=== PATIENT | male | born 1940 | race Hispanic/Latino ===

== ENCOUNTER 2021-11-03 21:22 | Inpatient (IN) | payer MEDICARE, OTHER ==
[~2021-11-03] VITALS: Ht 182.9 cm; Wt 98.2 kg
[2021-11-03] MEDS ORDERED: 0.9% NACL 500ML IV.SOLN 500 ML IV ONE (22:30)
[2021-11-03] MEDS ORDERED: LORAZEPAM 2 MG/ML 1 ML VIAL IVP ONE (22:30)
[2021-11-03 22:32] LABS: BASOPHILS % (AUTO) 0.1 % (0.0-5.0); EOSINOPHILS % (AUTO) 0.1 % (0.0-8.0); HEMATOCRIT 30.7 % (42-54); LYMPHOCYTES % (AUTO) 2.9 % (21.0-51.0); MEAN CORPUSCULAR HEMOGLOBIN 31.4 pg (27.0-33.0); MEAN CORPUSCULAR HGB CONC 31.3 g/dL (32.0-36.0); MEAN CORPUSCULAR VOLUME 100.3 fL (79-99); MONOCYTES % (AUTO) 4.1 % (3.0-13.0); NEUTROPHILS % (AUTO) 92.2 % (40.0-77.0); NUCLEATED RED BLOOD CELLS 0.2 % (0.0-0.19); PLATELET COUNT (AUTO) 176 K/uL (130-400); RED BLOOD CELL COUNT(AUTO) 3.06 MIL/uL (4.50-6.20); RED CELL DISTRIBUTION WIDTH 19.2 % (11.0-15.5); WHITE BLOOD COUNT (AUTO) 14.5 K/uL (4.8-10.8)
[2021-11-03 22:39] LABS: INR 1.22 (0.85-1.15); PROTHROMBIN TIME 13.1 SEC (9.6-11.6)
[2021-11-03 22:40] LABS: PARTIAL THROMBOPLASTIN TIME 27.1 SEC (26.3-35.5)
[2021-11-03 22:43] LABS: ALBUMIN 2.8 g/dL (3.5-5.0); BILIRUBIN,TOTAL 1.2 mg/dL (0.2-1.0); CREATININE 0.9 mg/dL (0.5-1.5); TOTAL PROTEIN, SERUM 5.5 g/dL (6.0-8.3)
[2021-11-03 22:47] LABS: POTASSIUM 2.2 mmol/L (3.5-5.1)
[2021-11-03] MEDS ORDERED: POTASSIUM CHLORIDE 20 MEQ/100 ML BAG IV SCH (23:00)
[2021-11-03] MEDS ORDERED: ASPIRIN 300 MG SUPPOSITORY PR ONE (23:00)
[2021-11-03] MEDS ORDERED: IOHEXOL 350 MG/ML 100ML INFUS..BTL IV ONE (23:18)
[2021-11-04] MEDS ORDERED: ALPRAZOLAM 0.25 MG TABLET PO PRN (02:00)
[2021-11-04] MEDS ORDERED: LORAZEPAM 2 MG/ML 1 ML VIAL ONE (04:15)
[2021-11-04] MEDS ORDERED: LORAZEPAM 2 MG/ML 1 ML VIAL IVP PRN (04:30)
[2021-11-04] MEDS ORDERED: LORAZEPAM 2 MG/ML 1 ML VIAL IM PRN (04:30)
[2021-11-04] MEDS ORDERED: DOCU100T PO (04:31)
[2021-11-04] MEDS ORDERED: PANT40TA54 PO (04:31)
[2021-11-04] MEDS ORDERED: BUDE180H IH (04:31)
[2021-11-04] MEDS ORDERED: ALBU8.5H8 IH (04:31)
[2021-11-04] MEDS ORDERED: LACT10SO9 PO (04:31)
[2021-11-04] MEDS ORDERED: BALS60OI TP (04:31)
[2021-11-04] MEDS ORDERED: [UNRECOGNIZED DRUG - CODE] IV (04:31)
[2021-11-04] MEDS ORDERED: ACET-2247 PO (04:31)
[2021-11-04] MEDS ORDERED: HYDR10 PO (04:31)
[2021-11-04] MEDS ORDERED: TEMA15CA PO (04:31)
[2021-11-04] MEDS ORDERED: MAAL30 PO (04:31)
[2021-11-04] MEDS ORDERED: NITR0.4T50 SL (04:31)
[2021-11-04] MEDS ORDERED: ALPR1TAB2 PO (04:31)
[2021-11-04] MEDS ORDERED: SENN8.6T32 PO (04:31)
[2021-11-04] MEDS ORDERED: MELA10TA PO (04:31)
[2021-11-04] MEDS ORDERED: FURO40TA5 PO (04:31)
[2021-11-04] MEDS ORDERED: GUAI100S13 PO (04:31)
[2021-11-04] MEDS ORDERED: DEXA6TAB PO (04:31)
[2021-11-04] MEDS ORDERED: ATOR40TA71 PO (04:31)
[2021-11-04] MEDS ORDERED: ONDANSETRON 4MG INJ IV PRN (05:00)
[2021-11-04] MEDS ORDERED: DOXYCYCLINE 100MG+NS 250ML IV SCH (05:00)
[2021-11-04] MEDS: DEXAMETHASONE SOD PHOSPHATE 4 MG/ML 1ML VIAL IVP SCH (05:00)
[2021-11-04] MEDS ORDERED: AZITHROMYCIN 500MG+NS 250ML 250 ML IV SCH ×2 (05:00→09:00)
[2021-11-04] MEDS: CEFTRIAXONE 1G VIAL IVP SCH ×2 (05:00→17:00)
[2021-11-04] MEDS ORDERED: ACETAMINOPHEN 325 MG TAB PO PRN (05:00)
[2021-11-04] MEDS ORDERED: LIDOCAINE HCL-MPF 1% 2ML VIAL IV PRN (05:30)
[2021-11-04 06:39] LABS: HEMOGLOBIN A1C 5.1 % (4.0-6.0)
[2021-11-04] MEDS: DOXYCYCLINE 100MG+NS 250ML 250 ML IV SCH ×2 (08:55→20:53)
[2021-11-04] MEDS: POTASSIUM CHLORIDE 20MEQ/100ML 100 ML IV PRN ×5 (08:55→23:47)
[2021-11-04] MEDS: FAMOTIDINE 20MG TAB PO SCH ×2 (08:56→20:42)
[2021-11-04] MEDS ORDERED: LABETALOL 20MG SYG IV PRN (09:00)
[2021-11-04] MEDS ORDERED: ENOXAPARIN SODIUM 40 MG/0.4 ML SYRINGE SQ SCH (09:00)
[2021-11-04] MEDS: IPRATROPIUM 0.5 MG/2.5 ML INH IH SCH ×4 (10:10→23:06)
[2021-11-04] MEDS: 1/2NS+20MEQ KCL/1000ML 1,000 ML IV SCH (13:00)
[2021-11-04 14:17] LABS: CREATININE 1.1 mg/dL (0.5-1.5); MAGNESIUM 2.1 mg/dL (1.80-2.40)
[2021-11-04 14:27] LABS: POTASSIUM 2.4 mmol/L (3.5-5.1)
[2021-11-04] MEDS: METRONIDAZOLE 500MG/100ML BAG 100 ML IVPB SCH ×2 (14:54→21:34)
[2021-11-04 20:00] VITALS: BP 112/76
[2021-11-04] MEDS ORDERED: FUROSEMIDE 20MG VIAL IV SCH (22:30)
[2021-11-04 23:00] VITALS: BP 101/42
[2021-11-05 01:00] VITALS: BP 135/65
[2021-11-05] MEDS: 1/2NS+20MEQ KCL/1000ML 1,000 ML IV SCH ×3 (02:00→21:16)
[2021-11-05] MEDS: IPRATROPIUM 0.5 MG/2.5 ML INH IH SCH ×6 (02:35→21:45)
[2021-11-05 04:00] VITALS: BP 115/57
[2021-11-05] MEDS: CEFTRIAXONE 1G VIAL IVP SCH (05:00)
[2021-11-05 05:36] LABS: BASOPHILS % (AUTO) 0.1 % (0.0-5.0); EOSINOPHILS % (AUTO) 0.6 % (0.0-8.0); HEMATOCRIT 25.9 % (42-54); LYMPHOCYTES % (AUTO) 3.9 % (21.0-51.0); MEAN CORPUSCULAR HEMOGLOBIN 31.7 pg (27.0-33.0); MEAN CORPUSCULAR HGB CONC 30.9 g/dL (32.0-36.0); MEAN CORPUSCULAR VOLUME 102.8 fL (79-99); MONOCYTES % (AUTO) 4.8 % (3.0-13.0); NEUTROPHILS % (AUTO) 90.2 % (40.0-77.0); PLATELET COUNT (AUTO) 123 K/uL (130-400); RED BLOOD CELL COUNT(AUTO) 2.52 MIL/uL (4.50-6.20); RED CELL DISTRIBUTION WIDTH 19.5 % (11.0-15.5); WHITE BLOOD COUNT (AUTO) 13.9 K/uL (4.8-10.8)
[2021-11-05] MEDS: DEXAMETHASONE SOD PHOSPHATE 4 MG/ML 1ML VIAL IVP SCH (05:42)
[2021-11-05 05:56] LABS: % IRON SATURATION 33.3 % (30-44)
[2021-11-05] MEDS: METRONIDAZOLE 500MG/100ML BAG 100 ML IVPB SCH (06:00)
[2021-11-05 06:03] LABS: ALBUMIN 2.3 g/dL (3.5-5.0); BILIRUBIN,TOTAL 0.7 mg/dL (0.2-1.0); CREATININE 0.8 mg/dL (0.5-1.5); CRP QUANTITATIVE 17.5 mg/L (0.00-9.0); TOTAL PROTEIN, SERUM 4.6 g/dL (6.0-8.3)
[2021-11-05 06:19] LABS: POTASSIUM 2.7 mmol/L (3.5-5.1)
[2021-11-05] MEDS: POTASSIUM CHLORIDE 20MEQ/100ML 100 ML IV PRN (06:51)
[2021-11-05 08:50] VITALS: BP 117/65
[2021-11-05] MEDS ORDERED: CLOPIDOGREL 75MG TAB PO SCH (09:00)
[2021-11-05] MEDS ORDERED: ASPIRIN 81MG CHEW TAB PO SCH (09:00)
[2021-11-05] MEDS ORDERED: DOXYCYCLINE 100MG+NS 250ML 250 ML IV SCH (09:00)
[2021-11-05] MEDS ORDERED: PANTOPRAZOLE 40 MG TAB DR PO SCH (09:00)
[2021-11-05] MEDS: FAMOTIDINE 20MG TAB PO SCH ×2 (10:40→21:17)
[2021-11-05] MEDS ORDERED: KCL 20 MEQ ERTAB PO SCH (11:30)
[2021-11-05] MEDS ORDERED: PHARMACY COMMUNICATION MISC SCH (11:30)
[2021-11-05 12:00] VITALS: BP 132/58
[2021-11-05] MEDS ORDERED: COMPOUND PO MISCELLANEOUS 1 EACH MISC MISC PRN (12:00)
[2021-11-05] MEDS ORDERED: COMPOUND IV MISC 1 EACH IVSOLN MISC PRN (13:30)
[2021-11-05] MEDS: VANCOMYCIN 250MG/5ML ORAL SOLUTION 40ML PO SCH ×6 (15:00→21:16)
[2021-11-05 17:45] VITALS: BP 133/71
[2021-11-05] MEDS ORDERED: KCL 20 MEQ ERTAB PO PRN (19:30)
[2021-11-05 20:00] VITALS: BP 111/57
[2021-11-05] MEDS: POTASSIUM CHLORIDE 10% ELIXIR 20 MEQ/15 ML UDCUP PO PRN ×2 (21:15→23:08)
[2021-11-06] VITALS (7 sets, daily range): BP systolic 112–134; BP diastolic 54–71
[2021-11-06] MEDS: IPRATROPIUM 0.5 MG/2.5 ML INH IH SCH ×4 (02:17→20:20)
[2021-11-06 04:15] LABS: EOSINOPHILS % (AUTO) 0.9 % (0.0-8.0); HEMATOCRIT 24.7 % (42-54); LYMPHOCYTES % (AUTO) 13.3 % (21.0-51.0); MEAN CORPUSCULAR HEMOGLOBIN 31.3 pg (27.0-33.0); MEAN CORPUSCULAR HGB CONC 30.8 g/dL (32.0-36.0); MEAN CORPUSCULAR VOLUME 101.6 fL (79-99); MONOCYTES % (AUTO) 2.5 % (3.0-13.0); NEUTROPHILS % (AUTO) 82.8 % (40.0-77.0); PLATELET COUNT (AUTO) 13 K/uL (130-400); RED BLOOD CELL COUNT(AUTO) 2.43 MIL/uL (4.50-6.20); RED CELL DISTRIBUTION WIDTH 19.3 % (11.0-15.5); WHITE BLOOD COUNT (AUTO) 4.4 K/uL (4.8-10.8)
[2021-11-06 04:36] LABS: ALBUMIN 2.2 g/dL (3.5-5.0); BILIRUBIN,TOTAL 0.8 mg/dL (0.2-1.0); CREATININE 0.6 mg/dL (0.5-1.5); CRP QUANTITATIVE 13.3 mg/L (0.00-9.0); MAGNESIUM 2.1 mg/dL (1.80-2.40); POTASSIUM 3.7 mmol/L (3.5-5.1); TOTAL PROTEIN, SERUM 4.3 g/dL (6.0-8.3)
[2021-11-06] MEDS: 1/2NS+20MEQ KCL/1000ML 1,000 ML IV SCH ×2 (05:21→16:49)
[2021-11-06] MEDS: POTASSIUM CHLORIDE 10% ELIXIR 20 MEQ/15 ML UDCUP PO PRN ×2 (05:25→06:44)
[2021-11-06] MEDS: VANCOMYCIN 1G 2 GM, 0.9%NACL 20 ML VIAL 80 ML PO SCH ×8 (09:00→20:37)
[2021-11-06] MEDS: IRON SUCROSE COMPLEX 100 MG in 0.9%NACL 50ML 50 ML IV SCH (11:18)
[2021-11-06 11:53] LABS: EOSINOPHILS % (AUTO) 1.8 % (0.0-8.0); HEMATOCRIT 27.1 % (42-54); MEAN CORPUSCULAR HEMOGLOBIN 31.7 pg (27.0-33.0); MEAN CORPUSCULAR HGB CONC 30.6 g/dL (32.0-36.0); MEAN CORPUSCULAR VOLUME 103.4 fL (79-99); NEUTROPHILS % (AUTO) 85.8 % (40.0-77.0); PLATELET COUNT (AUTO) 107 K/uL (130-400); RED BLOOD CELL COUNT(AUTO) 2.62 MIL/uL (4.50-6.20); RED CELL DISTRIBUTION WIDTH 19.8 % (11.0-15.5); WHITE BLOOD COUNT (AUTO) 9.4 K/uL (4.8-10.8)
[2021-11-06] MEDS: FINASTERIDE 5 MG TABLET PO SCH (12:30)
[2021-11-06] MEDS: TAMSULOSIN HCL 0.4 MG CAP.ER.24H PO SCH (12:30)
[2021-11-06] MEDS: SIMETHICONE 40 MG/0.6 ML ML PO SCH ×3 (12:30→20:35)
[2021-11-06] MEDS: ACETAMINOPHEN 325 MG TAB PO PRN (16:51)
[2021-11-06] MEDS: BALSAM PERU/CASTOR OIL 60 GM TUBE TP SCH ×2 (18:24→20:36)
[2021-11-06] MEDS ORDERED: TRAZODONE HCL 50 MG TAB PO PRN (20:00)
[2021-11-06] MEDS: PANTOPRAZOLE 40 MG TAB DR PO SCH (20:37)
[2021-11-07] MEDS: IPRATROPIUM 0.5 MG/2.5 ML INH IH SCH ×7 (00:08→21:43)
[2021-11-07] MEDS: 1/2NS+20MEQ KCL/1000ML 1,000 ML IV SCH ×3 (01:42→20:33)
[2021-11-07] MEDS ORDERED: TRAZODONE HCL 50 MG TAB PO ONE (03:00)
[2021-11-07 04:41] VITALS: BP 117/67
[2021-11-07 07:01] LABS: EOSINOPHILS % (AUTO) 3.3 % (0.0-8.0); HEMATOCRIT 25.9 % (42-54); LYMPHOCYTES % (AUTO) 6.8 % (21.0-51.0); MEAN CORPUSCULAR HEMOGLOBIN 31.1 pg (27.0-33.0); MEAN CORPUSCULAR HGB CONC 30.1 g/dL (32.0-36.0); MEAN CORPUSCULAR VOLUME 103.2 fL (79-99); NEUTROPHILS % (AUTO) 84.3 % (40.0-77.0); PLATELET COUNT (AUTO) 88 K/uL (130-400); RED BLOOD CELL COUNT(AUTO) 2.51 MIL/uL (4.50-6.20); RED CELL DISTRIBUTION WIDTH 19.3 % (11.0-15.5); WHITE BLOOD COUNT (AUTO) 6.6 K/uL (4.8-10.8)
[2021-11-07 07:05] VITALS: BP 122/65
[2021-11-07 07:28] LABS: ALBUMIN 2.2 g/dL (3.5-5.0); BILIRUBIN,TOTAL 0.8 mg/dL (0.2-1.0); CREATININE 0.5 mg/dL (0.5-1.5); CRP QUANTITATIVE 10.7 mg/L (0.00-9.0); POTASSIUM 3.9 mmol/L (3.5-5.1); TOTAL PROTEIN, SERUM 4.3 g/dL (6.0-8.3)
[2021-11-07] MEDS: SIMETHICONE 40 MG/0.6 ML ML PO SCH ×4 (10:32→20:40)
[2021-11-07] MEDS: VANCOMYCIN 1G 2 GM, 0.9%NACL 20 ML VIAL 80 ML PO SCH ×8 (10:32→20:40)
[2021-11-07] MEDS: PANTOPRAZOLE 40 MG TAB DR PO SCH ×2 (10:33→20:33)
[2021-11-07] MEDS: BALSAM PERU/CASTOR OIL 60 GM TUBE TP SCH ×2 (10:33→20:58)
[2021-11-07 11:00] VITALS: BP 112/67
[2021-11-07] MEDS: FINASTERIDE 5 MG TABLET PO SCH (12:32)
[2021-11-07] MEDS: TAMSULOSIN HCL 0.4 MG CAP.ER.24H PO SCH (12:32)
[2021-11-07] MEDS: IRON SUCROSE COMPLEX 100 MG in 0.9%NACL 50ML 50 ML IV SCH (12:33)
[2021-11-07 15:00] VITALS: BP 118/55
[2021-11-07 20:00] VITALS: BP_SYST 113; BP_SYST 94; BP_DIAS 56; BP_DIAS 60
[2021-11-07] MEDS ORDERED: TEMAZEPAM 7.5 MG CAPSULE PO PRN (20:00)
[2021-11-07] MEDS: ACETAMINOPHEN 325 MG TAB PO PRN (20:58)
[2021-11-08] VITALS (7 sets, daily range): BP systolic 102–133; BP diastolic 54–71
[2021-11-08] MEDS: IPRATROPIUM 0.5 MG/2.5 ML INH IH SCH ×6 (01:20→23:03)
[2021-11-08] MEDS: 1/2NS+20MEQ KCL/1000ML 1,000 ML IV SCH ×2 (06:18→16:57)
[2021-11-08] MEDS: PANTOPRAZOLE 40 MG TAB DR PO SCH ×2 (08:29→21:07)
[2021-11-08] MEDS: VANCOMYCIN 1G 2 GM, 0.9%NACL 20 ML VIAL 80 ML PO SCH ×8 (08:37→21:00)
[2021-11-08] MEDS: SIMETHICONE 40 MG/0.6 ML ML PO SCH ×4 (08:37→21:00)
[2021-11-08 08:41] LABS: BASOPHILS % (AUTO) 0.2 % (0.0-5.0); EOSINOPHILS % (AUTO) 4.4 % (0.0-8.0); HEMATOCRIT 24.8 % (42-54); LYMPHOCYTES % (AUTO) 6.8 % (21.0-51.0); MEAN CORPUSCULAR HEMOGLOBIN 31.6 pg (27.0-33.0); MEAN CORPUSCULAR HGB CONC 30.2 g/dL (32.0-36.0); MEAN CORPUSCULAR VOLUME 104.6 fL (79-99); MONOCYTES % (AUTO) 5.6 % (3.0-13.0); NEUTROPHILS % (AUTO) 82.7 % (40.0-77.0); PLATELET COUNT (AUTO) 84 K/uL (130-400); RED BLOOD CELL COUNT(AUTO) 2.37 MIL/uL (4.50-6.20); RED CELL DISTRIBUTION WIDTH 19.3 % (11.0-15.5); WHITE BLOOD COUNT (AUTO) 6.6 K/uL (4.8-10.8)
[2021-11-08] MEDS: BALSAM PERU/CASTOR OIL 60 GM TUBE TP SCH ×2 (08:50→21:07)
[2021-11-08] MEDS ORDERED: PHARMACY COMMUNICATION MISC ONE (09:00)
[2021-11-08] MEDS: IRON SUCROSE COMPLEX 100 MG in 0.9%NACL 50ML 50 ML IV SCH (09:26)
[2021-11-08 10:13] LABS: CREATININE 0.5 mg/dL (0.5-1.5); POTASSIUM 3.6 mmol/L (3.5-5.1)
[2021-11-08] MEDS: POTASSIUM CHLORIDE 20MEQ/100ML 100 ML IV PRN (10:26)
[2021-11-08] MEDS: TAMSULOSIN HCL 0.4 MG CAP.ER.24H PO SCH (12:57)
[2021-11-08] MEDS: FINASTERIDE 5 MG TABLET PO SCH (12:57)
[2021-11-08] MEDS ORDERED: PHARMACY COMMUNICATION MISC SCH (15:00)
[2021-11-08] MEDS ORDERED: ALPRAZOLAM 0.5 MG TABLET PO PRN (21:40)
[2021-11-08] MEDS ORDERED: ALPRAZOLAM 0.25 MG TABLET ONE (21:42)
[2021-11-09] MEDS: IPRATROPIUM 0.5 MG/2.5 ML INH IH SCH ×6 (02:18→22:28)
[2021-11-09 03:53] VITALS: BP 124/70
[2021-11-09 05:23] LABS: HEMATOCRIT 25.4 % (42-54); MEAN CORPUSCULAR HEMOGLOBIN 32.2 pg (27.0-33.0); MEAN CORPUSCULAR HGB CONC 30.7 g/dL (32.0-36.0); PLATELET COUNT (AUTO) 62 K/uL (130-400); RED BLOOD CELL COUNT(AUTO) 2.42 MIL/uL (4.50-6.20); RED CELL DISTRIBUTION WIDTH 19.6 % (11.0-15.5); WHITE BLOOD COUNT (AUTO) 6.2 K/uL (4.8-10.8)
[2021-11-09] MEDS: 1/2NS+20MEQ KCL/1000ML 1,000 ML IV SCH (05:28)
[2021-11-09 05:31] LABS: CREATININE 0.4 mg/dL (0.5-1.5); POTASSIUM 3.6 mmol/L (3.5-5.1)
[2021-11-09 05:35] LABS: BAND NEUTROPHILS % (MANUAL) 3 % (0-2); LYMPHOCYTES % (MANUAL) 10 % (22-44); MONOCYTES % (MANUAL) 27 % (2-9); REACTIVE LYMPHOCYTES 1 % (0-0); SEGMENTED NEUTROPHILS % 59 % (40-70)
[2021-11-09 05:36] LABS: MAN.DIFF COMMENT-IMPRESSION MANUAL DIFFERENTIAL; PLATELET MORPHOLOGY COMMENT DECREASED
[2021-11-09 07:20] VITALS: BP 130/72
[2021-11-09] MEDS: TAMSULOSIN HCL 0.4 MG CAP.ER.24H PO SCH (08:45)
[2021-11-09] MEDS: SIMETHICONE 40 MG/0.6 ML ML PO SCH ×3 (08:45→20:51)
[2021-11-09] MEDS: VANCOMYCIN 1G 2 GM, 0.9%NACL 20 ML VIAL 80 ML PO SCH ×6 (08:45→20:49)
[2021-11-09] MEDS: PANTOPRAZOLE 40 MG TAB DR PO SCH ×2 (08:45→20:46)
[2021-11-09] MEDS: BALSAM PERU/CASTOR OIL 60 GM TUBE TP SCH ×2 (08:45→20:51)
[2021-11-09] MEDS: IRON SUCROSE COMPLEX 100 MG in 0.9%NACL 50ML 50 ML IV SCH (08:45)
[2021-11-09] MEDS: FINASTERIDE 5 MG TABLET PO SCH (08:45)
[2021-11-09] MEDS: POTASSIUM CHLORIDE 20MEQ/100ML 100 ML IV PRN (10:27)
[2021-11-09 11:25] VITALS: BP 113/69
[2021-11-09 15:20] VITALS: BP 116/73
[2021-11-09 20:00] VITALS: BP 111/61
[2021-11-09] MEDS: METRONIDAZOLE 500MG/100ML BAG 100 ML IVPB SCH (22:29)
[2021-11-09] MEDS: ALPRAZOLAM 1 MG TAB PO PRN (22:29)
[2021-11-10 00:23] VITALS: BP 109/66
[2021-11-10] MEDS: IPRATROPIUM 0.5 MG/2.5 ML INH IH SCH ×6 (02:56→22:52)
[2021-11-10 03:51] LABS: ABG BASE EXCESS 0.3 mmol/L (-2.0-3.0); ABG HCO3 26.1 mmol/L (21.0-28.0); ABG OXYGEN SATURATION 92.5 % (95.0-99.0); ABG PCO2 47 mmHg (35-48)
[2021-11-10 04:00] VITALS: BP 123/73
[2021-11-10 05:07] LABS: HEMATOCRIT 27.7 % (42-54); MEAN CORPUSCULAR HEMOGLOBIN 32.3 pg (27.0-33.0); MEAN CORPUSCULAR HGB CONC 30.3 g/dL (32.0-36.0); MEAN CORPUSCULAR VOLUME 106.5 fL (79-99); PLATELET COUNT (AUTO) 100 K/uL (130-400); RED CELL DISTRIBUTION WIDTH 20.1 % (11.0-15.5); WHITE BLOOD COUNT (AUTO) 5.4 K/uL (4.8-10.8)
[2021-11-10 05:19] LABS: BAND NEUTROPHILS % (MANUAL) 8 % (0-2); INR 1.18 (0.85-1.15); LYMPHOCYTES % (MANUAL) 20 % (22-44); MAN.DIFF COMMENT-IMPRESSION MANUAL DIFFERENTIAL; MONOCYTES % (MANUAL) 4 % (2-9); PLATELET MORPHOLOGY COMMENT ADEQUATE; PROTHROMBIN TIME 12.7 SEC (9.6-11.6); SEGMENTED NEUTROPHILS % 68 % (40-70)
[2021-11-10 05:20] LABS: ALBUMIN 2.2 g/dL (3.5-5.0); BILIRUBIN,DIRECT 0.2 mg/dL (0.0-0.3); BILIRUBIN,TOTAL 0.6 mg/dL (0.2-1.0); CREATININE 0.4 mg/dL (0.5-1.5); CRP QUANTITATIVE 28.9 mg/L (0.00-9.0); MAGNESIUM 1.9 mg/dL (1.80-2.40); PARTIAL THROMBOPLASTIN TIME 35.8 SEC (26.3-35.5); PHOSPHORUS 2.2 mg/dL (2.5-4.9); POTASSIUM 3.3 mmol/L (3.5-5.1); TOTAL PROTEIN, SERUM 4.5 g/dL (6.0-8.3)
[2021-11-10] MEDS: ACETAMINOPHEN 325 MG TAB PO PRN (05:23)
[2021-11-10] MEDS: POTASSIUM CHLORIDE 10% ELIXIR 20 MEQ/15 ML UDCUP PO PRN ×3 (06:21→12:42)
[2021-11-10] MEDS: METRONIDAZOLE 500MG/100ML BAG 100 ML IVPB SCH ×3 (06:25→21:31)
[2021-11-10 08:00] VITALS: BP 105/63
[2021-11-10] MEDS: PANTOPRAZOLE 40 MG TAB DR PO SCH (09:46)
[2021-11-10] MEDS: FINASTERIDE 5 MG TABLET PO SCH (09:46)
[2021-11-10] MEDS: TAMSULOSIN HCL 0.4 MG CAP.ER.24H PO SCH (09:46)
[2021-11-10] MEDS: VANCOMYCIN 1G 2 GM, 0.9%NACL 20 ML VIAL 80 ML PO SCH ×8 (09:47→21:33)
[2021-11-10] MEDS: SIMETHICONE 40 MG/0.6 ML ML PO SCH ×4 (09:47→21:33)
[2021-11-10] MEDS: BALSAM PERU/CASTOR OIL 60 GM TUBE TP SCH ×2 (09:48→21:32)
[2021-11-10] MEDS: IRON SUCROSE COMPLEX 100 MG in 0.9%NACL 50ML 50 ML IV SCH (09:48)
[2021-11-10 12:00] VITALS: BP 114/56
[2021-11-10 16:00] VITALS: BP 101/62
[2021-11-10] MEDS ORDERED: ASCORBIC ACID 500 MG TAB PO SCH (17:00)
[2021-11-10] MEDS ORDERED: ZINC SULFATE 220 CAPSULE PO SCH (17:00)
[2021-11-10] MEDS ORDERED: KCL 20 MEQ ERTAB PO ONE (17:00)
[2021-11-10] MEDS: NEUTRA-PHOS PACKET 1 EACH PO SCH ×2 (17:18→21:31)
[2021-11-10] MEDS: MAGNESIUM OXIDE 400 MG TABLET PO SCH (17:19)
[2021-11-10 20:00] VITALS: BP 115/60
[2021-11-10] MEDS: ALPRAZOLAM 1 MG TAB PO PRN (21:31)
[2021-11-10] MEDS: FAMOTIDINE 20MG VIAL IV SCH (21:31)
[2021-11-11] VITALS: BP 113/70
[2021-11-11] MEDS: IPRATROPIUM 0.5 MG/2.5 ML INH IH SCH ×5 (02:32→22:07)
[2021-11-11 04:00] VITALS: BP 110/53
[2021-11-11 04:37] LABS: HEMATOCRIT 27.8 % (42-54); MEAN CORPUSCULAR HEMOGLOBIN 31.3 pg (27.0-33.0); MEAN CORPUSCULAR HGB CONC 29.5 g/dL (32.0-36.0); MEAN CORPUSCULAR VOLUME 106.1 fL (79-99); RED BLOOD CELL COUNT(AUTO) 2.62 MIL/uL (4.50-6.20); RED CELL DISTRIBUTION WIDTH 20.8 % (11.0-15.5); RETICULOCYTE % (AUTO) 6.82 % (0.42-2.23); WHITE BLOOD COUNT (AUTO) 4.9 K/uL (4.8-10.8)
[2021-11-11 04:57] LABS: % IRON SATURATION 36.9 % (30-44)
[2021-11-11 05:20] LABS: CREATININE 0.5 mg/dL (0.5-1.5); CRP QUANTITATIVE 18.5 mg/L (0.00-9.0); MAGNESIUM 1.9 mg/dL (1.80-2.40); PHOSPHORUS 2.3 mg/dL (2.5-4.9); POTASSIUM 3.2 mmol/L (3.5-5.1); THYROID STIMULATING HORMONE 5.89 uIU/mL (0.36-3.74)
[2021-11-11] MEDS: METRONIDAZOLE 500MG/100ML BAG 100 ML IVPB SCH ×3 (05:33→21:25)
[2021-11-11] MEDS: POTASSIUM CHLORIDE 10% ELIXIR 20 MEQ/15 ML UDCUP PO PRN (05:57)
[2021-11-11 08:00] VITALS: BP 120/72
[2021-11-11] MEDS: VANCOMYCIN 1G 2 GM, 0.9%NACL 20 ML VIAL 80 ML PO SCH ×8 (09:00→21:24)
[2021-11-11] MEDS: MAGNESIUM OXIDE 400 MG TABLET PO SCH ×2 (09:39→16:49)
[2021-11-11] MEDS: NEUTRA-PHOS PACKET 1 EACH PO SCH ×4 (09:40→21:24)
[2021-11-11] MEDS: TAMSULOSIN HCL 0.4 MG CAP.ER.24H PO SCH (09:40)
[2021-11-11] MEDS: ZINC SULFATE 220 CAPSULE PO SCH (09:41)
[2021-11-11] MEDS: SIMETHICONE 40 MG/0.6 ML ML PO SCH ×4 (09:41→21:20)
[2021-11-11] MEDS: FAMOTIDINE 20MG VIAL IV SCH (09:41)
[2021-11-11] MEDS: ASCORBIC ACID 500 MG TAB PO SCH (09:41)
[2021-11-11] MEDS: FINASTERIDE 5 MG TABLET PO SCH (09:41)
[2021-11-11] MEDS: IRON SUCROSE COMPLEX 100 MG in 0.9%NACL 50ML 50 ML IV SCH (09:42)
[2021-11-11] MEDS: BALSAM PERU/CASTOR OIL 60 GM TUBE TP SCH ×2 (09:43→21:25)
[2021-11-11] MEDS ORDERED: FOLIC ACID 1 MG TABLET PO ONE (11:30)
[2021-11-11 12:00] VITALS: BP 106/63
[2021-11-11] MEDS: POTASSIUM CHLORIDE IV SCH (14:30)
[2021-11-11] MEDS: AMILORIDE 5MG TAB PO SCH (14:30)
[2021-11-11] MEDS: 1/2 NS IV SCH (14:30)
[2021-11-11 16:00] VITALS: BP 102/58
[2021-11-11 20:00] VITALS: BP 97/64
[2021-11-11] MEDS: METOPROLOL TARTRATE 25 MG TAB PO SCH (21:00)
[2021-11-11] MEDS: ALPRAZOLAM 1 MG TAB PO PRN (21:18)
[2021-11-11] MEDS: FAMOTIDINE 20MG TAB PO SCH (21:19)
[2021-11-12] VITALS (7 sets, daily range): BP systolic 95–134; BP diastolic 53–65
[2021-11-12] MEDS: IPRATROPIUM 0.5 MG/2.5 ML INH IH SCH ×6 (02:41→21:53)
[2021-11-12 03:29] LABS: ABG BASE EXCESS 0.5 mmol/L (-2.0-3.0); ABG HCO3 25.8 mmol/L (21.0-28.0); ABG OXYGEN SATURATION 96.2 % (95.0-99.0); ABG PCO2 44 mmHg (35-48)
[2021-11-12] MEDS: METRONIDAZOLE 500MG/100ML BAG 100 ML IVPB SCH ×3 (05:57→20:20)
[2021-11-12] MEDS: VANCOMYCIN 1G 2 GM, 0.9%NACL 20 ML VIAL 80 ML PO SCH ×8 (10:34→20:04)
[2021-11-12] MEDS: FAMOTIDINE 20MG TAB PO SCH ×2 (10:35→20:04)
[2021-11-12] MEDS: MAGNESIUM OXIDE 400 MG TABLET PO SCH ×2 (10:36→17:15)
[2021-11-12] MEDS: SIMETHICONE 40 MG/0.6 ML ML PO SCH ×4 (10:36→20:05)
[2021-11-12] MEDS: ZINC SULFATE 220 CAPSULE PO SCH (10:37)
[2021-11-12] MEDS: TAMSULOSIN HCL 0.4 MG CAP.ER.24H PO SCH (10:37)
[2021-11-12] MEDS: ASCORBIC ACID 500 MG TAB PO SCH (10:38)
[2021-11-12] MEDS: FOLIC ACID 1 MG TABLET PO SCH (10:39)
[2021-11-12] MEDS: AMILORIDE 5MG TAB PO SCH (10:40)
[2021-11-12] MEDS: METOPROLOL TARTRATE 25 MG TAB PO SCH ×2 (10:40→20:04)
[2021-11-12] MEDS: FINASTERIDE 5 MG TABLET PO SCH (10:40)
[2021-11-12] MEDS: NEUTRA-PHOS PACKET 1 EACH PO SCH ×3 (10:41→20:20)
[2021-11-12] MEDS: POTASSIUM CHLORIDE 10% ELIXIR 20 MEQ/15 ML UDCUP PO PRN ×2 (10:42→17:16)
[2021-11-12] MEDS: BALSAM PERU/CASTOR OIL 60 GM TUBE TP SCH ×2 (10:43→20:20)
[2021-11-12 11:25] LABS: BASOPHILS % (AUTO) 0.2 % (0.0-5.0); EOSINOPHILS % (AUTO) 3.9 % (0.0-8.0); HEMATOCRIT 26.8 % (42-54); LYMPHOCYTES % (AUTO) 10.2 % (21.0-51.0); MEAN CORPUSCULAR HEMOGLOBIN 32.5 pg (27.0-33.0); MEAN CORPUSCULAR VOLUME 105.1 fL (79-99); NEUTROPHILS % (AUTO) 74.7 % (40.0-77.0); PLATELET COUNT (AUTO) 114 K/uL (130-400); RED BLOOD CELL COUNT(AUTO) 2.55 MIL/uL (4.50-6.20); RED CELL DISTRIBUTION WIDTH 21.2 % (11.0-15.5); WHITE BLOOD COUNT (AUTO) 5.1 K/uL (4.8-10.8)
[2021-11-12 11:36] LABS: CREATININE 0.5 mg/dL (0.5-1.5); POTASSIUM 3.1 mmol/L (3.5-5.1)
[2021-11-12 11:39] LABS: ALBUMIN 2.3 g/dL (3.5-5.0); BILIRUBIN,TOTAL 0.6 mg/dL (0.2-1.0); CRP QUANTITATIVE 21.7 mg/L (0.00-9.0); MAGNESIUM 1.7 mg/dL (1.80-2.40); PHOSPHORUS 2.7 mg/dL (2.5-4.9); TOTAL PROTEIN, SERUM 4.7 g/dL (6.0-8.3)
[2021-11-12] MEDS ORDERED: ALPRAZOLAM 1 MG TAB PO PRN (12:30)
[2021-11-12 12:54] LABS: ERYTHROCYTE SEDIMENTATION RATE 30 MM/HR (0-20)
[2021-11-12] MEDS: POTASSIUM CHLORIDE IV SCH (17:14)
[2021-11-12] MEDS: 1/2 NS IV SCH (17:14)
[2021-11-12] MEDS ORDERED: MAGNESIUM 2GM PREMIX 50ML 50 ML IV SCH (17:30)
[2021-11-12] MEDS ORDERED: POTASSIUM CHLORIDE 10% ELIXIR 20 MEQ/15 ML UDCUP PO SCH (18:15)
[2021-11-12] MEDS: TEMAZEPAM 7.5 MG CAPSULE PO SCH ×2 (20:02→21:00)
[2021-11-13] MEDS: IPRATROPIUM 0.5 MG/2.5 ML INH IH SCH ×4 (02:00→14:14)
[2021-11-13 03:34] VITALS: BP 96/65
[2021-11-13] MEDS: METRONIDAZOLE 500MG/100ML BAG 100 ML IVPB SCH ×2 (05:16→13:39)
[2021-11-13 08:21] VITALS: BP 96/58
[2021-11-13] MEDS: NEUTRA-PHOS PACKET 1 EACH PO SCH ×2 (08:41→13:39)
[2021-11-13] MEDS: FINASTERIDE 5 MG TABLET PO SCH (08:42)
[2021-11-13] MEDS: ZINC SULFATE 220 CAPSULE PO SCH (08:42)
[2021-11-13] MEDS: ASCORBIC ACID 500 MG TAB PO SCH (08:42)
[2021-11-13] MEDS: TAMSULOSIN HCL 0.4 MG CAP.ER.24H PO SCH (08:42)
[2021-11-13] MEDS: FOLIC ACID 1 MG TABLET PO SCH (08:42)
[2021-11-13] MEDS: FAMOTIDINE 20MG TAB PO SCH (08:42)
[2021-11-13] MEDS: METOPROLOL TARTRATE 25 MG TAB PO SCH (08:44)
[2021-11-13] MEDS: VANCOMYCIN 1G 2 GM, 0.9%NACL 20 ML VIAL 80 ML PO SCH ×4 (08:44→13:37)
[2021-11-13] MEDS: SIMETHICONE 40 MG/0.6 ML ML PO SCH (08:45)
[2021-11-13] MEDS: BALSAM PERU/CASTOR OIL 60 GM TUBE TP SCH (08:46)
[2021-11-13] MEDS: AMILORIDE 5MG TAB PO SCH (09:27)
[2021-11-13 11:38] VITALS: BP 108/63
[2021-11-13] MEDS ORDERED: SIMETHICONE 40 MG/0.6 ML ML PO SCH (13:00)
[2021-11-13 14:06] LABS: BASOPHILS % (AUTO) 0.4 % (0.0-5.0); EOSINOPHILS % (AUTO) 2.7 % (0.0-8.0); HEMATOCRIT 30.5 % (42-54); LYMPHOCYTES % (AUTO) 9.3 % (21.0-51.0); MEAN CORPUSCULAR HEMOGLOBIN 32.5 pg (27.0-33.0); MEAN CORPUSCULAR HGB CONC 30.2 g/dL (32.0-36.0); MEAN CORPUSCULAR VOLUME 107.8 fL (79-99); MONOCYTES % (AUTO) 8.8 % (3.0-13.0); NEUTROPHILS % (AUTO) 78.4 % (40.0-77.0); NUCLEATED RED BLOOD CELLS 0.5 % (0.0-0.19); PLATELET COUNT (AUTO) 104 K/uL (130-400); RED BLOOD CELL COUNT(AUTO) 2.83 MIL/uL (4.50-6.20); RED CELL DISTRIBUTION WIDTH 21.7 % (11.0-15.5); WHITE BLOOD COUNT (AUTO) 5.5 K/uL (4.8-10.8)
[2021-11-13 14:14] LABS: CREATININE 0.5 mg/dL (0.5-1.5); POTASSIUM 3.2 mmol/L (3.5-5.1)
[2021-11-13 14:18] LABS: ALBUMIN 2.5 g/dL (3.5-5.0); BILIRUBIN,TOTAL 0.7 mg/dL (0.2-1.0); MAGNESIUM 1.7 mg/dL (1.80-2.40); PHOSPHORUS 2.6 mg/dL (2.5-4.9); TOTAL PROTEIN, SERUM 5.1 g/dL (6.0-8.3)
[2021-11-13] MEDS ORDERED: MAGNESIUM OXIDE 400 MG TABLET PO SCH (16:00)
== END 2021-11-13 16:25 | DRG 177 ==
LOC: EDH 21:22 → EDHIP 11-04 01:19 → 4CH 11-05 01:39
PROVIDERS: ADMIT Internal Medicine; ATTEND Internal Medicine
PROC: 0D9670Z Drainage of Stomach with Drainage Device, Via Natural or Artificial Opening (ICD-10-PCS; principal; 2021-11-04)
DX: J69.0 Pneumonitis due to inhalation of food and vomit (principal); J96.01 Acute respiratory failure with hypoxia; I21.A1 Myocardial infarction type 2; E43 Unspecified severe protein-calorie malnutrition; K56.7 Ileus, unspecified; C79.51 Secondary malignant neoplasm of bone; A04.72 Enterocolitis due to Clostridium difficile, not specified as recurrent; D68.32 Hemorrhagic disorder due to extrinsic circulating anticoagulants; E87.3 Alkalosis; J47.0 Bronchiectasis with acute lower respiratory infection; N17.9 Acute kidney failure, unspecified; K56.609 Unspecified intestinal obstruction, unspecified as to partial versus complete obstruction; E87.6 Hypokalemia; Z20.822 Contact with and (suspected) exposure to COVID-19; I10 Essential (primary) hypertension; D64.9 Anemia, unspecified; D69.6 Thrombocytopenia, unspecified; E11.9 Type 2 diabetes mellitus without complications; E66.9 Obesity, unspecified; E78.5 Hyperlipidemia, unspecified; L89.152 Pressure ulcer of sacral region, stage 2; E87.8 Other disorders of electrolyte and fluid balance, not elsewhere classified; L89.322 Pressure ulcer of left buttock, stage 2; L89.312 Pressure ulcer of right buttock, stage 2; D69.59 Other secondary thrombocytopenia; N40.0 Benign prostatic hyperplasia without lower urinary tract symptoms; R32 Unspecified urinary incontinence; T45.515A Adverse effect of anticoagulants, initial encounter; Z53.20 Procedure and treatment not carried out because of patient's decision for unspecified reasons; Z68.29 Body mass index [BMI] 29.0-29.9, adult; Z88.0 Allergy status to penicillin; Z88.7 Allergy status to serum and vaccine; Z88.8 Allergy status to other drugs, medicaments and biological substances; I25.2 Old myocardial infarction; Z85.46 Personal history of malignant neoplasm of prostate; Y92.89 Other specified places as the place of occurrence of the external cause; Z82.49 Family history of ischemic heart disease and other diseases of the circulatory system
CPT/HCPCS: 36415; 36600; 71045; 71275; 74018; 74177; 74230; 80048; 80053; 80076; 82040; 82607; 82728; 82746; 82803; 82948; 83036; 83540; 83550; 83605; 83615; 83735; 83880; 84100; 84132; 84145; 84153; 84443; 84484; 85025; 85027; 85045; 85378; 85610; 85651; 85730; 86140; 86850; 86900; 86901; 87177; 87324; 87635; 92610; 92611; 93005; 94640; 94664; 94667; 94668; 97039; G0378; J0696; J1100; J1650; J1756; J2060; J3370; J3480; J3490; J7040; Q9967

== ENCOUNTER 2021-11-24 04:40 | Inpatient (IN) | payer MEDICARE ==
[~2021-11-24] VITALS: Ht 185.4 cm; Wt 104.3 kg
[~2021-11-24 04:40] MED LIST: ACET-2247 PO; ALBU8.5H8 IH; ALPR1TAB2 PO; ATOR40TA71 PO; BALS60OI TP; BUDE180H IH; DEXA6TAB PO; DOCU100T PO; FURO40TA5 PO; GUAI100S13 PO; HYDR10 PO; LACT10SO9 PO; MAAL30 PO; MELA10TA PO; NITR0.4T50 SL; PANT40TA54 PO; SENN8.6T32 PO; TEMA15CA PO; [UNRECOGNIZED DRUG - CODE] IV
[2021-11-24 05:48] LABS: BASOPHILS % (AUTO) 0.7 % (0.0-5.0); EOSINOPHILS % (AUTO) 1.5 % (0.0-8.0); HEMATOCRIT 33.1 % (42-54); LYMPHOCYTES % (AUTO) 14.5 % (21.0-51.0); MEAN CORPUSCULAR HEMOGLOBIN 31.1 pg (27.0-33.0); MEAN CORPUSCULAR HGB CONC 29.6 g/dL (32.0-36.0); MEAN CORPUSCULAR VOLUME 105.1 fL (79-99); MONOCYTES % (AUTO) 8.5 % (3.0-13.0); NEUTROPHILS % (AUTO) 74.3 % (40.0-77.0); PLATELET COUNT (AUTO) 253 K/uL (130-400); RED BLOOD CELL COUNT(AUTO) 3.15 MIL/uL (4.50-6.20); WHITE BLOOD COUNT (AUTO) 5.9 K/uL (4.8-10.8)
[2021-11-24 05:58] LABS: INR 1.43 (0.85-1.15); PROTHROMBIN TIME 15.1 SEC (9.6-11.6)
[2021-11-24 06:03] LABS: ALBUMIN 2.2 g/dL (3.5-5.0); B-TYPE NATRIURETIC PEPTIDE 31 pg/mL (0-100); BILIRUBIN,TOTAL 0.6 mg/dL (0.2-1.0); CREATININE 0.5 mg/dL (0.5-1.5)
[2021-11-24] MEDS ORDERED: POTASSIUM BICARB/CIT AC 25 MEQ TABLET.EFF PO ONE (07:00)
[2021-11-24] MEDS ORDERED: FUROSEMIDE 40MG VIAL IV ONE (07:00)
[2021-11-24 07:29] LABS: MAGNESIUM 2.1 mg/dL (1.80-2.40); THYROID STIMULATING HORMONE 3.27 uIU/mL (0.36-3.74)
[2021-11-24] MEDS: BUDESONIDE 0.5 MG/2 ML INH IH SCH ×2 (10:00→19:17)
[2021-11-24] MEDS ORDERED: ALBUTEROL 0.083% 2.5 MG/3 ML INH IH PRN (10:30)
[2021-11-24] MEDS ORDERED: ALPRAZOLAM 0.25 MG TABLET PO PRN (10:30)
[2021-11-24] MEDS: LACTOBACILLUS RHAMNOSUS GG 1 EACH CAP.SPRINK PO SCH (11:00)
[2021-11-24 11:15] VITALS: BP 136/72
[2021-11-24] MEDS: PANTOPRAZOLE 40 MG/VIAL IVP SCH ×2 (12:13→20:26)
[2021-11-24] MEDS: HEPARIN 5,000 UNIT VIAL IV PRN (12:25)
[2021-11-24] MEDS: HEPARIN 25,000 UNITS/250ML D5W 250 ML IV SCH (12:27)
[2021-11-24] MEDS ORDERED: DEXTROSE 50%-WATER 50 ML DISP.SYRIN IV PRN (13:00)
[2021-11-24] MEDS ORDERED: GLUCAGON 1MG KIT 1 MG ML IM PRN (13:00)
[2021-11-24 14:43] LABS: EOSINOPHILS % (AUTO) 1.5 % (0.0-8.0); HEMATOCRIT 34.1 % (42-54); LYMPHOCYTES % (AUTO) 16.7 % (21.0-51.0); MEAN CORPUSCULAR HEMOGLOBIN 31.4 pg (27.0-33.0); MEAN CORPUSCULAR HGB CONC 29.9 g/dL (32.0-36.0); MEAN CORPUSCULAR VOLUME 104.9 fL (79-99); MONOCYTES % (AUTO) 8.5 % (3.0-13.0); NEUTROPHILS % (AUTO) 71.8 % (40.0-77.0); PLATELET COUNT (AUTO) 271 K/uL (130-400); RED BLOOD CELL COUNT(AUTO) 3.25 MIL/uL (4.50-6.20); RED CELL DISTRIBUTION WIDTH 19.9 % (11.0-15.5); WHITE BLOOD COUNT (AUTO) 5.9 K/uL (4.8-10.8)
[2021-11-24] MEDS: BALSAM PERU/CASTOR OIL 60 GM TUBE TP SCH ×2 (14:54→20:27)
[2021-11-24] MEDS: AMILORIDE 5MG TAB PO SCH (15:44)
[2021-11-24] MEDS ORDERED: POTASSIUM CHLORIDE 10% ELIXIR 20 MEQ/15 ML UDCUP ONE ×2 (15:49→20:14)
[2021-11-24 16:00] VITALS: BP 129/72
[2021-11-24] MEDS ORDERED: KCL 20 MEQ ERTAB PO SCH (16:00)
[2021-11-24 20:18] VITALS: BP 124/70
[2021-11-24] MEDS: TAMSULOSIN HCL 0.4 MG CAP.ER.24H PO SCH (20:25)
[2021-11-24] MEDS: MAGNESIUM OXIDE 400 MG TABLET PO SCH (20:25)
[2021-11-24] MEDS: MIRTAZAPINE 15 MG TABLET PO SCH (20:26)
[2021-11-24] MEDS: ATORVASTATIN 40 MG TABLET PO SCH (20:26)
[2021-11-24] MEDS: DONEPEZIL HCL 5 MG TAB PO SCH (20:26)
[2021-11-24] MEDS ORDERED: MAGN400T40 PO (20:32)
[2021-11-24] MEDS ORDERED: APIX2.5T PO (20:32)
[2021-11-24] MEDS ORDERED: SPIR25TA6 PO (20:32)
[2021-11-24] MEDS ORDERED: DONE5TAB33 PO (20:32)
[2021-11-24] MEDS ORDERED: FAMO20TA8 PO (20:32)
[2021-11-24] MEDS ORDERED: METO25TA6 PO (20:32)
[2021-11-24] MEDS ORDERED: TAMS-1 PO (20:32)
[2021-11-24] MEDS ORDERED: PROT946L PO (20:32)
[2021-11-24] MEDS ORDERED: POTA-79 PO (20:32)
[2021-11-24] MEDS ORDERED: NAPH1PAC2 PO (20:32)
[2021-11-24] MEDS: KCL 20 MEQ ERTAB PO SCH (20:34)
[2021-11-24 23:53] VITALS: BP 140/74
[2021-11-25] MEDS ORDERED: NYST15CR2 TP (01:13)
[2021-11-25] MEDS ORDERED: BALS60OI TP (01:13)
[2021-11-25] MEDS ORDERED: ASCO500T10 PO (01:13)
[2021-11-25] MEDS ORDERED: FOLI1 PO (01:13)
[2021-11-25] MEDS ORDERED: CALC-805 PO (01:13)
[2021-11-25] MEDS ORDERED: MIRT-93 PO (01:13)
[2021-11-25] MEDS ORDERED: FINA5TAB41 PO (01:13)
[2021-11-25] MEDS ORDERED: IPRAHFA IH (01:13)
[2021-11-25] MEDS ORDERED: ZINC220C6 PO (01:13)
[2021-11-25] MEDS ORDERED: ACID1CAP3 PO (01:13)
[2021-11-25] MEDS ORDERED: ATOR40TA69 PO (01:13)
[2021-11-25] MEDS ORDERED: BUDE0.5A3 IH (01:13)
[2021-11-25] MEDS ORDERED: TEMA15CA PO (01:13)
[2021-11-25] MEDS ORDERED: MIRT-22 PO (01:13)
[2021-11-25] MEDS ORDERED: SIME80TA12 PO (01:13)
[2021-11-25 04:21] VITALS: BP 135/68
[2021-11-25] MEDS: BUDESONIDE 0.5 MG/2 ML INH IH SCH ×2 (06:15→18:08)
[2021-11-25] MEDS: HEPARIN 25,000 UNITS/250ML D5W 250 ML IV SCH (06:16)
[2021-11-25 07:58] VITALS: BP 136/71
[2021-11-25 08:06] LABS: BASOPHILS % (AUTO) 1.1 % (0.0-5.0); HEMATOCRIT 36.3 % (42-54); LYMPHOCYTES % (AUTO) 11.7 % (21.0-51.0); MEAN CORPUSCULAR HEMOGLOBIN 31.7 pg (27.0-33.0); MEAN CORPUSCULAR HGB CONC 29.5 g/dL (32.0-36.0); MEAN CORPUSCULAR VOLUME 107.4 fL (79-99); MONOCYTES % (AUTO) 7.7 % (3.0-13.0); PLATELET COUNT (AUTO) 253 K/uL (130-400); RED BLOOD CELL COUNT(AUTO) 3.38 MIL/uL (4.50-6.20); RED CELL DISTRIBUTION WIDTH 19.4 % (11.0-15.5); WHITE BLOOD COUNT (AUTO) 6.1 K/uL (4.8-10.8)
[2021-11-25 08:18] LABS: CREATININE 0.5 mg/dL (0.5-1.5); POTASSIUM 3.1 mmol/L (3.5-5.1)
[2021-11-25 08:22] LABS: ALBUMIN 2.2 g/dL (3.5-5.0); BILIRUBIN,TOTAL 0.5 mg/dL (0.2-1.0); MAGNESIUM 1.9 mg/dL (1.80-2.40)
[2021-11-25] MEDS ORDERED: POTASSIUM CHLORIDE 10% ELIXIR 20 MEQ/15 ML UDCUP ONE ×2 (08:25→19:20)
[2021-11-25] MEDS: KCL 20 MEQ ERTAB PO SCH ×2 (09:00→20:08)
[2021-11-25] MEDS: PANTOPRAZOLE 40 MG/VIAL IVP SCH ×2 (09:16→20:07)
[2021-11-25] MEDS: FINASTERIDE 5 MG TABLET PO SCH (09:17)
[2021-11-25] MEDS: MAGNESIUM OXIDE 400 MG TABLET PO SCH ×2 (09:17→20:06)
[2021-11-25] MEDS: DONEPEZIL HCL 5 MG TAB PO SCH ×2 (09:18→20:06)
[2021-11-25] MEDS: BALSAM PERU/CASTOR OIL 60 GM TUBE TP SCH ×2 (09:18→20:08)
[2021-11-25] MEDS: AMILORIDE 5MG TAB PO SCH (09:18)
[2021-11-25 09:43] LABS: APPEARANCE,URINE Clear (CLEAR); BILIRUBIN,URINE Negative (NEGATIVE); COLOR,URINE Yellow (YELLOW); GLUCOSE, URINE (UA) Negative (NEGATIVE); KETONES,URINE 40 mg/dL (NEGATIVE); LEUKOCYTE ESTERASE ,URINE Negative (NEGATIVE); NITRATE,URINE Negative (NEGATIVE); OCCULT BLOOD,URINE Negative (NEGATIVE); PH,URINE 6.5 (5.0-8.0); PROTEIN,URINE Negative (NEGATIVE); UROBILINOGEN,URINE 0.2 mg/dL (0.2-1.0)
[2021-11-25 10:17] LABS: BACTERIA,URINE Rare /HPF (None Seen); RBC,URINE 0-1 /HPF (0-1); SQUAMOUS EPITHELIAL CELL,UR Rare /HPF (0-2); WBC,URINE 0-1 /HPF (0-1)
[2021-11-25] MEDS: LACTOBACILLUS RHAMNOSUS GG 1 EACH CAP.SPRINK PO SCH (11:11)
[2021-11-25 11:51] VITALS: BP 136/62
[2021-11-25 16:00] VITALS: BP 125/67
[2021-11-25] MEDS: ATORVASTATIN 40 MG TABLET PO SCH (20:06)
[2021-11-25] MEDS: TAMSULOSIN HCL 0.4 MG CAP.ER.24H PO SCH (20:06)
[2021-11-25] MEDS: MIRTAZAPINE 15 MG TABLET PO SCH (20:06)
[2021-11-25 20:25] VITALS: BP 141/75
[2021-11-25 23:31] VITALS: BP 131/71
[2021-11-26 01:47] LABS: BASOPHILS % (AUTO) 0.7 % (0.0-5.0); EOSINOPHILS % (AUTO) 1.5 % (0.0-8.0); HEMATOCRIT 31.8 % (42-54); LYMPHOCYTES % (AUTO) 14.5 % (21.0-51.0); MEAN CORPUSCULAR HEMOGLOBIN 32.2 pg (27.0-33.0); MEAN CORPUSCULAR HGB CONC 30.5 g/dL (32.0-36.0); MEAN CORPUSCULAR VOLUME 105.6 fL (79-99); MONOCYTES % (AUTO) 9.6 % (3.0-13.0); PLATELET COUNT (AUTO) 274 K/uL (130-400); RED BLOOD CELL COUNT(AUTO) 3.01 MIL/uL (4.50-6.20); RED CELL DISTRIBUTION WIDTH 19.3 % (11.0-15.5); WHITE BLOOD COUNT (AUTO) 5.9 K/uL (4.8-10.8)
[2021-11-26 02:00] LABS: BILIRUBIN,TOTAL 0.5 mg/dL (0.2-1.0); CREATININE 0.5 mg/dL (0.5-1.5); TOTAL PROTEIN, SERUM 4.7 g/dL (6.0-8.3)
[2021-11-26 02:04] LABS: POTASSIUM 2.5 mmol/L (3.5-5.1)
[2021-11-26] MEDS ORDERED: POTASSIUM CHLORIDE 10% ELIXIR 20 MEQ/15 ML UDCUP ONE ×3 (02:16→02:17)
[2021-11-26] MEDS ORDERED: POTASSIUM CHLORIDE 10% ELIXIR 20 MEQ/15 ML UDCUP PO ONE ×2 (02:30→10:00)
[2021-11-26 03:55] VITALS: BP 132/67
[2021-11-26] MEDS: BUDESONIDE 0.5 MG/2 ML INH IH SCH ×2 (07:08→19:15)
[2021-11-26 07:15] VITALS: BP 141/77
[2021-11-26 08:20] LABS: CREATININE 0.4 mg/dL (0.5-1.5); MAGNESIUM 1.8 mg/dL (1.80-2.40); POTASSIUM 3.2 mmol/L (3.5-5.1)
[2021-11-26] MEDS: KCL 20 MEQ ERTAB PO SCH ×2 (09:00→21:13)
[2021-11-26] MEDS ORDERED: KCL 20 MEQ ERTAB PO ONE (09:30)
[2021-11-26] MEDS ORDERED: K PH MBDB PO PRN (10:00)
[2021-11-26] MEDS ORDERED: NAPH MB DB PO PRN (10:00)
[2021-11-26] MEDS: IPRATROPIUM 0.5 MG/2.5 ML INH IH SCH ×4 (10:00→22:00)
[2021-11-26] MEDS: BALSAM PERU/CASTOR OIL 60 GM TUBE TP SCH ×2 (10:27→21:15)
[2021-11-26] MEDS: AMILORIDE 5MG TAB PO SCH (10:27)
[2021-11-26] MEDS: FINASTERIDE 5 MG TABLET PO SCH (10:27)
[2021-11-26] MEDS: MAGNESIUM OXIDE 400 MG TABLET PO SCH ×2 (10:28→21:14)
[2021-11-26] MEDS: DONEPEZIL HCL 5 MG TAB PO SCH ×2 (10:28→21:11)
[2021-11-26] MEDS: PANTOPRAZOLE 40 MG/VIAL IVP SCH ×2 (10:28→21:10)
[2021-11-26] MEDS: LACTOBACILLUS RHAMNOSUS GG 1 EACH CAP.SPRINK PO SCH (10:49)
[2021-11-26] MEDS: SIMETHICONE 80 MG TAB.CHEW PO SCH ×3 (10:52→21:14)
[2021-11-26 11:15] VITALS: BP 136/81
[2021-11-26] MEDS: HEPARIN 5,000 UNIT VIAL IV PRN (14:37)
[2021-11-26 15:10] VITALS: BP 122/68
[2021-11-26 20:40] VITALS: BP 120/65
[2021-11-26] MEDS ORDERED: BUDESONIDE 0.5 MG/2 ML INH IH SCH (21:00)
[2021-11-26] MEDS ORDERED: NYSTATIN-TRIAMCINOLONE CREAM 15 GM TP SCH (21:00)
[2021-11-26] MEDS ORDERED: ATORVASTATIN 40 MG TABLET PO SCH (21:00)
[2021-11-26] MEDS ORDERED: MIRTAZAPINE 15 MG TABLET PO SCH (21:00)
[2021-11-26] MEDS ORDERED: DONEPEZIL HCL 5 MG TAB PO SCH (21:00)
[2021-11-26] MEDS: PROTEIN SUPPLEMENT PO SCH (21:00)
[2021-11-26] MEDS ORDERED: KCL 20 MEQ ERTAB PO SCH (21:00)
[2021-11-26] MEDS: TEMAZEPAM 15 MG CAPSULE PO SCH ×2 (21:00→21:14)
[2021-11-26] MEDS: APIXABAN 2.5 MG TABLET PO SCH (21:12)
[2021-11-26] MEDS: TAMSULOSIN HCL 0.4 MG CAP.ER.24H PO SCH (21:12)
[2021-11-26] MEDS: METOPROLOL TARTRATE 25 MG TAB PO SCH (21:13)
[2021-11-26] MEDS: ATORVASTATIN 40 MG TABLET PO SCH (21:13)
[2021-11-26] MEDS: FAMOTIDINE 20MG TAB PO SCH (21:14)
[2021-11-26] MEDS: MIRTAZAPINE 15 MG TABLET PO SCH (21:14)
[2021-11-27 00:22] VITALS: BP 131/61
[2021-11-27] MEDS: HEPARIN 25,000 UNITS/250ML D5W 250 ML IV SCH (00:45)
[2021-11-27] MEDS: IPRATROPIUM 0.5 MG/2.5 ML INH IH SCH ×4 (02:00→13:33)
[2021-11-27 02:03] LABS: EOSINOPHILS % (AUTO) 1.6 % (0.0-8.0); HEMATOCRIT 32.2 % (42-54); MEAN CORPUSCULAR HEMOGLOBIN 31.6 pg (27.0-33.0); MEAN CORPUSCULAR HGB CONC 30.1 g/dL (32.0-36.0); MEAN CORPUSCULAR VOLUME 104.9 fL (79-99); MONOCYTES % (AUTO) 10.5 % (3.0-13.0); NEUTROPHILS % (AUTO) 68.3 % (40.0-77.0); PLATELET COUNT (AUTO) 261 K/uL (130-400); RED BLOOD CELL COUNT(AUTO) 3.07 MIL/uL (4.50-6.20); WHITE BLOOD COUNT (AUTO) 5.2 K/uL (4.8-10.8)
[2021-11-27 03:48] VITALS: BP 125/65
[2021-11-27] MEDS: SIMETHICONE 80 MG TAB.CHEW PO SCH ×2 (04:46→10:28)
[2021-11-27] MEDS: BUDESONIDE 0.5 MG/2 ML INH IH SCH (06:00)
[2021-11-27 07:15] VITALS: BP 139/73
[2021-11-27] MEDS ORDERED: KCL 20 MEQ ERTAB PO SCH (07:30)
[2021-11-27] MEDS ORDERED: PECTIN CITRUS PO SCH (09:00)
[2021-11-27] MEDS ORDERED: SPIRONOLACTONE 25 MG TAB PO SCH (09:00)
[2021-11-27] MEDS ORDERED: FOLIC ACID 1 MG TABLET PO SCH (09:00)
[2021-11-27] MEDS ORDERED: ACIDOPHILUS PO SCH (09:00)
[2021-11-27] MEDS: KCL 20 MEQ ERTAB PO SCH (09:00)
[2021-11-27] MEDS ORDERED: MIRTAZAPINE 15 MG TABLET PO SCH (09:00)
[2021-11-27] MEDS ORDERED: ASCORBIC ACID 500 MG TAB PO SCH (09:00)
[2021-11-27] MEDS ORDERED: TAMSULOSIN HCL 0.4 MG CAP.ER.24H PO SCH (09:00)
[2021-11-27] MEDS ORDERED: CA 600MG+VIT D 400 UNIT TAB 1 TAB TABLET PO SCH (09:00)
[2021-11-27] MEDS ORDERED: FINASTERIDE 5 MG TABLET PO SCH (09:00)
[2021-11-27] MEDS: PROTEIN SUPPLEMENT PO SCH (09:00)
[2021-11-27] MEDS ORDERED: ZINC SULFATE 220 CAPSULE PO SCH (09:00)
[2021-11-27] MEDS: APIXABAN 2.5 MG TABLET PO SCH (09:14)
[2021-11-27] MEDS: AMILORIDE 5MG TAB PO SCH (09:16)
[2021-11-27] MEDS: FAMOTIDINE 20MG TAB PO SCH (09:18)
[2021-11-27] MEDS: MAGNESIUM OXIDE 400 MG TABLET PO SCH (09:18)
[2021-11-27] MEDS: DONEPEZIL HCL 5 MG TAB PO SCH (09:19)
[2021-11-27] MEDS: METOPROLOL TARTRATE 25 MG TAB PO SCH (09:22)
[2021-11-27] MEDS: PANTOPRAZOLE 40 MG/VIAL IVP SCH (09:23)
[2021-11-27] MEDS: BALSAM PERU/CASTOR OIL 60 GM TUBE TP SCH (09:29)
[2021-11-27] MEDS: LACTOBACILLUS RHAMNOSUS GG 1 EACH CAP.SPRINK PO SCH (10:28)
[2021-11-27 11:15] VITALS: BP 120/68
== END 2021-11-27 15:10 | DRG 314 ==
LOC: EDH 04:40 → INTOOBSV 07:05 → UNDOADMOB 07:05 → EDHIP 07:05 → OBSVTOIN 07:05 → EDHIP 09:31 → OBSVTOIN 09:31 → 3AH 10:15
PROVIDERS: ADMIT Internal Medicine; ATTEND Internal Medicine
PROC: 02PYX3Z Removal of Infusion Device from Great Vessel, External Approach (ICD-10-PCS; principal; 2021-11-25)
DX: T82.868A Thrombosis due to vascular prosthetic devices, implants and grafts, initial encounter (principal); E43 Unspecified severe protein-calorie malnutrition; R53.2 Functional quadriplegia; I82.621 Acute embolism and thrombosis of deep veins of right upper extremity; K56.7 Ileus, unspecified; I10 Essential (primary) hypertension; E87.6 Hypokalemia; D53.9 Nutritional anemia, unspecified; I25.10 Atherosclerotic heart disease of native coronary artery without angina pectoris; R62.7 Adult failure to thrive; N40.1 Benign prostatic hyperplasia with lower urinary tract symptoms; Z66 Do not resuscitate; Z20.822 Contact with and (suspected) exposure to COVID-19; E87.8 Other disorders of electrolyte and fluid balance, not elsewhere classified; L89.159 Pressure ulcer of sacral region, unspecified stage; R39.15 Urgency of urination; L89.312 Pressure ulcer of right buttock, stage 2; L89.322 Pressure ulcer of left buttock, stage 2; Y83.8 Other surgical procedures as the cause of abnormal reaction of the patient, or of later complication, without mention of misadventure at the time of the procedure; F41.9 Anxiety disorder, unspecified; Z68.30 Body mass index [BMI] 30.0-30.9, adult; Z74.01 Bed confinement status; I25.2 Old myocardial infarction; Z88.0 Allergy status to penicillin; Z88.7 Allergy status to serum and vaccine; Z88.8 Allergy status to other drugs, medicaments and biological substances; Z79.01 Long term (current) use of anticoagulants; Z87.01 Personal history of pneumonia (recurrent); Z86.19 Personal history of other infectious and parasitic diseases; Z85.46 Personal history of malignant neoplasm of prostate; Z86.718 Personal history of other venous thrombosis and embolism; Y92.89 Other specified places as the place of occurrence of the external cause; Z82.49 Family history of ischemic heart disease and other diseases of the circulatory system
CPT/HCPCS: 36415; 71045; 74018; 80048; 80053; 81001; 82270; 82607; 82746; 82948; 83605; 83735; 83880; 84132; 84153; 84443; 84484; 85025; 85610; 85730; 86850; 86900; 86901; 87040; 87070; 87076; 87324; 87635; 87804; 93005; 93971; 94640; 94664; C9113; C9803; G0378; J1644; J1940